=== PATIENT | female | born 1980 | race Hispanic/Latino ===

== ENCOUNTER 2017-09-07 01:45 | Emergency (ER) | payer SELFPAY ==
[2017-09-07 02:00] LABS: Bilirubin Negative (Negative); Blood, Urine Moderate (Negative); Clarity CLOUDY (Clear); Glucose, Urine (Dipstick) Negative (Negative); Leukocyte Negative (Negative); Nitrite Negative (Negative); Protein, Urine (Dipstick) Negative (Neg-Trace); Specific Gravity, Urine 1.017 (1.002-1.036); Urobilinogen 0.2 mg/dL (0.2-1.0)
[2017-09-07 02:02] LABS: Bacteria/HPF None Seen HPF (None Seen); Hyaline Casts/LPF 0-3 HYALINE CAST LPF (0-3 Hyaline); Pathc Cast-AUWi Flag 0.29 (0-2.49); WBC/HPF 0-3 HPF (0-3); Yeast-AUWi Flag 23.8 (0-25.0)
[2017-09-07 02:03] LABS: Pregnancy Test - Urine (BHCG) Negative (Negative); Pregu Control Background? CLEAR/WHITE (CLR/WHITE); Pregu Control Bar Appear? YES (CONTROL BAR)
[2017-09-07 02:04] LABS: Specific Gravity 1.017 (1.002-1.036)
[2017-09-07 02:11] LABS: #Basophils 0.1 thou/uL (0.0-0.2); #Eosinphils 0.3 thou/uL (0.0-0.7); #Lymphocytes 5.8 thou/uL (1.20-3.40); #Monocytes 0.9 thou/uL (0.11-0.59); #Neutrophils 6.8 thou/uL (1.40-6.50); %Basophils 0.6 % (0.0-1.0); %Eosinophils 2.4 % (0.0-10.0); %Lymphocytes 41.7 % (21.0-51.0); %Monocytes 6.4 % (0.0-10.0); %Neutrophils 48.9 % (42.0-75.0); Hemoglobin 13.6 g/dL (12.0-16.0); Mean Corpuscular Hemoglobin 29.7 pg (27.0-31.0); Mean Platelet Volume 6.4 fL (7.4-10.4); Platelet Count 342 thou/uL (130-400); Red Blood Cell (RBC) Count 4.57 mill/uL (4.20-5.40); White Blood Cell (WBC) Count 13.9 thou/uL (4.8-10.8)
[2017-09-07 02:37] LABS: ALT (SGPT) 24 U/L (8-55); AST (SGOT) 16 U/L (5-34); Albumin 4.3 g/dL (3.5-5.0); Alkaline Phosphatase 174 U/L (40-150); Anion Gap 10 mmol/L (10-20); BUN (Urea Nitrogen) 10 mg/dL (7.0-18.7); Bilirubin, Total 0.2 mg/dL (0.2-1.2); Calc. Creatinine Clearance 0 mL/min (70-130); Calcium 9.4 mg/dL (7.8-10.44); Carbon Dioxide 26 mmol/L (22-29); Chloride 103 mmol/L (98-107); Estimated GFR-MDRD Greater than 90; Globulin 3.4 g/dL (2.4-3.5); Glucose 119 mg/dL (70-105); Lipase 31 U/L (8-78); Potassium 3.2 mmol/L (3.5-5.1); Protein, Total 7.7 g/dL (6.0-8.3); Sodium 136 mmol/L (136-145)
[2017-09-07] MEDS ORDERED: Ketorolac Tromethamine 30 MG/ML VIAL ONE (03:01)
[2017-09-07] MEDS ORDERED: Acetaminophen 500 MG TAB ONE (03:01)
--- NOTE | 2017-09-07 07:48 | CT ---
PRELIMINARY REPORT/[facility]/EMERGENCY AFTER HOURS PROCEDURE: EXAM: CT Abdomen and Pelvis Without Intravenous Contrast EXAM DATE/TIME: 09/07/2017 2:43 AM CLINICAL HISTORY: 37 years old, female; Pain; Abdominal pain; Flank; Left; Patient HX: Er 2; No previous; F38 presents w/ suprapubic pain x1 hour. Pt reports urinary symptoms. Pt. Reports left flank pain. Pt denies simil ar SX in the past. Pt denies recent trauma. Pt denies n/v/d. Pt reports HX of diabetes and 2 c-sectio ns. Pt denies HX of kidney stones. Pt reports allergies to sulfa drugs. TECHNIQUE: Axial computed tomography images of the abdomen and pelvis without intravenous contrast. Coronal reformatted images were created and reviewed. COMPARISON: No relevant prior studies available. FINDINGS: Lung bases: Unremarkable. No mass. No consolidation. ABDOMEN: Liver: Unremarkable. Gallbladder and bile ducts: Gallbladder appears contracted, limits evaluation. No calcified stones. No ductal dilation. Pancreas: Unremarkable. No ductal dilation. Spleen: Unremarkable. No splenomegaly. Adrenals: Unremarkable. No mass. Kidneys and ureters: Mild left renal collecting system dilatation, perinephric and periureteral fat s tranding. Stomach and bowel: Mild - moderate amount retained stool material throughout areas nondilated colon. No mucosal thickening. Appendix: Visualized portions of appendix appear normal. PELVIS: Bladder: Small 3 mm stone right side of the bladder, suspect excreted renal stone. Reproductive: Uterus appears within normal limits. Small cysts suspected in left ovary. ABDOMEN and PELVIS: Intraperitoneal space: Unremarkable. No free air. No significant fluid collection. Bones/joints: Chronic degenerative changes of the lumbar spine. No acute fracture. No dislocation. Soft tissues: Unremarkable. Vasculature: Chronic atherosclerotic calcification of the vasculature. No abdominal aortic aneurysm. Lymph nodes: Unremarkable. No enlarged lymph nodes. IMPRESSION: 1. Small 3 mm stone right side of the bladder, suspect excreted renal stone. 2. Mild left renal collecting system dilatation, perinephric and periureteral fat stranding. -Suspect residual mild left obstructive uropathy - obstructive nephropathy related to passed renal stone and/ or renal-urinary tract infection. 3. Findings suggest some degree of constipation. Clinical correlation is recommended. Thank you for allowing us to participate in the care of your patient. Dictated and Authenticated by: Rebeca Ramos MD 09/07/2017 3:47 AM Central Time ([place] & [place]) FINAL REPORT CT ABDOMEN AND PELVIS WITHOUT CONTRAST STONE PROTOCOL HISTORY: Left flank pain. COMPARISON: None. FINDINGS/IMPRESSION: Findings and impression are concordant with the preliminary report. In addition, there is mild enlar gement of the left ovary. Nonemergent pelvic ultrasound may be beneficial. POS: MARTI
== END 2017-09-07 04:10 | disposition home or self-care (01) ==
LOC: ERS 01:45
DX: N20.0 Calculus of kidney (principal); E11.9 Type 2 diabetes mellitus without complications; Z79.84 Long term (current) use of oral hypoglycemic drugs
CPT/HCPCS: 36415; 74176; 80053; 81003; 81015; 81025; 83690; 85025; 96361; 96374; J1885